=== PATIENT | female | born 1980 | race Caucasian/White ===

== ENCOUNTER 2018-03-26 08:59 | Day surgery (SDC) | payer OTHER ==
[~2018-03-26] VITALS: Ht 165.1 cm; Wt 97.5 kg
[2018-03-26] MEDS ORDERED: LR 1,000 ML IV SCH (13:20)
[2018-03-26] MEDS ORDERED: OXYCODONE/ACETAMINOPHEN 5-325 TABLET PO PRN (13:30)
[2018-03-26] MEDS ORDERED: BUPIVACAINE /EPINEPHRINE/PF 0.5% 30 ML VIAL INJ ONE (13:30)
[2018-03-26] MEDS ORDERED: MIDAZOLAM HCL 5 MG/ML VIAL (VERSED) IV ONE (13:30)
[2018-03-26] MEDS ORDERED: METOCLOPRAMIDE HCL 10 MG/2 ML VIAL IVP PRN (13:30)
[2018-03-26] MEDS ORDERED: HYDROcodone/ACETAMIN 5-325 MG TAB (NORCO/ VICODIN) PO PRN (13:30)
[2018-03-26] MEDS ORDERED: MORPHINE 4 MG/ML INJ. SYRINGE IVP PRN ×3 (13:30)
[2018-03-26] MEDS ORDERED: ROCURONIUM BROMIDE 10 MG/ML (ZEMURON) IV ONE (13:30)
[2018-03-26] MEDS ORDERED: KETOROLAC TROMETHAMINE 30 MG VIAL IVP ONE (13:30)
[2018-03-26] MEDS ORDERED: NS 1000 ML BAG IV ONE (13:30)
[2018-03-26] MEDS ORDERED: SUGAMMADEX SODIUM 200 MG/2 ML VIAL IV ONE (13:30)
[2018-03-26] MEDS ORDERED: PROPOFOL 200MG/ 20ML VIAL (DIPRIVAN) IV ONE (13:30)
[2018-03-26] MEDS ORDERED: LR 1,000 ML IV.SOLN IV ONE (13:30)
[2018-03-26] MEDS ORDERED: ONDANSETRON HCL 4 MG/2 ML VIAL IVP ONE (13:30)
[2018-03-26] MEDS ORDERED: ONDANSETRON HCL 4 MG/2 ML VIAL IVP PRN (13:30)
[2018-03-26] MEDS ORDERED: fentaNYL CITRATE 250 MCG/5 ML AMP IV ONE (13:30)
[2018-03-26] MEDS ORDERED: SEVOFLURANE 15 MIN GAS INH ONE (13:30)
[2018-03-26] MEDS ORDERED: CLINDAMYCIN PHOSPHATE 600 MG/4 ML VIAL IV ONE (13:30)
[2018-03-26] MEDS ORDERED: MORPHINE 4 MG/ML INJ. SYRINGE ONE (14:06)
[2018-03-26] MEDS ORDERED: HYDROcodone/ACETAMIN 5-325 MG TAB (NORCO/ VICODIN) ONE (14:35)
[2018-03-26 14:38] VITALS: BP_SYST 120
== END 2018-03-26 16:00 | disposition home or self-care (01) ==
LOC: SDS 08:59 → SMU 08:59 → SDS 16:00
PROVIDERS: ATTEND Specialist
DX: N83.201 Unspecified ovarian cyst, right side (principal); N70.11 Chronic salpingitis; N80.1 Endometriosis of ovary; K21.9 Gastro-esophageal reflux disease without esophagitis; K58.9 Irritable bowel syndrome, unspecified; G43.909 Migraine, unspecified, not intractable, without status migrainosus; Z98.890 Other specified postprocedural states; Z68.36 Body mass index [BMI] 36.0-36.9, adult; Z88.0 Allergy status to penicillin; Z88.2 Allergy status to sulfonamides; Z88.8 Allergy status to other drugs, medicaments and biological substances; E66.01 Morbid (severe) obesity due to excess calories; G89.29 Other chronic pain
CPT/HCPCS: 58662; C1727; C9399; J1885; J2250; J2270; J2405; J2704; J3010; J3490 ×2; J7030; J7120

== ENCOUNTER 2020-03-16 12:33 | Day surgery (SDC) | payer OTHER ==
[2020-03-16] MEDS ORDERED: LR 1,000 ML IV SCH (14:08)
[2020-03-16] MEDS ORDERED: MEPERIDINE HCL/PF 25 MG/ML DISP.SYRIN IVP PRN (14:15)
[2020-03-16] MEDS ORDERED: ONDANSETRON HCL 4 MG/2 ML VIAL IVP PRN ×2 (14:15→16:15)
[2020-03-16] MEDS ORDERED: fentaNYL CITRATE/PF 100 MCG/2 ML AMP ONE (14:32)
[2020-03-16] MEDS ORDERED: WATER FOR IRRIGATION,STERILE 1,000 ML IRRIG.SOLN IR ONE (16:04)
[2020-03-16] MEDS ORDERED: ROCURONIUM BROMIDE 10 MG/ML (ZEMURON) ONE (16:04)
[2020-03-16] MEDS ORDERED: LR 1,000 ML IV.SOLN IV ONE (16:04)
[2020-03-16] MEDS ORDERED: SUCCINYLCHOLINE CHLORIDE 20 MG/ML(QUELICIN) ONE (16:04)
[2020-03-16] MEDS ORDERED: DEXAMETHASONE SOD PHOSPHATE 4 MG/ML VIAL ONE (16:04)
[2020-03-16] MEDS ORDERED: PROPOFOL 200MG/ 20ML VIAL (DIPRIVAN) IV ONE (16:04)
[2020-03-16] MEDS ORDERED: ISOFLURANE 15 MIN GAS INH ONE (16:04)
[2020-03-16] MEDS ORDERED: NS IRRIG SOLN 1000 ML IR ONE (16:04)
[2020-03-16] MEDS ORDERED: CLINDAMYCIN PHOSPHATE 900 mg/50mL D5W IV ONE (16:04)
[2020-03-16] MEDS ORDERED: BUPIVACAINE /EPINEPHRINE/PF 0.25% 30 ML VIAL INJ ONE (16:04)
[2020-03-16] MEDS: HYDROmorphone 1 MG INJ. 1 MG/ML AMPUL IVP PRN ×2 (16:13→16:26)
[2020-03-16] MEDS ORDERED: HYDROcodone/ACETAMIN 5-325 MG TAB (NORCO/ VICODIN) PO PRN (16:15)
[2020-03-16] MEDS ORDERED: OXYCODONE/ACETAMINOPHEN 5-325 TABLET PO PRN ×2 (16:15)
[2020-03-16] MEDS ORDERED: HYDROmorphone 2 MG/ML VIAL ONE (16:28)
[2020-03-16] MEDS ORDERED: SIMETHICONE 80 MG TAB.CHEW PO SCH (17:00)
[2020-03-16] MEDS ORDERED: ONDANSETRON HCL 4 MG/2 ML VIAL ONE (17:17)
[2020-03-16 17:50] VITALS: BP_SYST 112
== END 2020-03-16 19:00 | disposition home or self-care (01) ==
LOC: SDS 12:33 → SMU 12:34 → SDS 19:00
PROVIDERS: ATTEND Specialist
DX: N83.201 Unspecified ovarian cyst, right side (principal); N83.202 Unspecified ovarian cyst, left side; N94.6 Dysmenorrhea, unspecified; N80.9 Endometriosis, unspecified; Z88.0 Allergy status to penicillin; Z88.1 Allergy status to other antibiotic agents; Z91.048 Other nonmedicinal substance allergy status; K21.9 Gastro-esophageal reflux disease without esophagitis; K58.9 Irritable bowel syndrome, unspecified; Z98.890 Other specified postprocedural states; E66.9 Obesity, unspecified; Z68.33 Body mass index [BMI] 33.0-33.9, adult; Z79.899 Other long term (current) drug therapy; Z11.59 Encounter for screening for other viral diseases
CPT/HCPCS: 58578; 58662; 88304; 88305; C1727; J0330; J1100; J1170; J2405; J2704; J3010; J3490 ×2; J7120; U0002

== ENCOUNTER 2021-03-29 08:36 | Day surgery (SDC) | payer OTHER, SELFPAY ==
[~2021-03-29] VITALS: Ht 165.1 cm; Wt 97.5 kg
[2021-03-29] MEDS ORDERED: NS IRRIG SOLN 1000 ML IR ONE (12:30)
[2021-03-29] MEDS ORDERED: LR 1,000 ML IV.SOLN IV ONE (12:30)
[2021-03-29] MEDS ORDERED: ROPIVACAINE HCL/PF 5 MG/ML 0.5% 30 ML VIAL INJ ONE (12:30)
[2021-03-29] MEDS ORDERED: WATER FOR IRRIGATION,STERILE 4,000 ML IRRIG.SOLN IR ONE (12:30)
[2021-03-29] MEDS ORDERED: SUGAMMADEX SODIUM 200 MG/2 ML VIAL IV ONE (12:30)
[2021-03-29] MEDS ORDERED: CEFAZOLIN SOD 1 GM in D5W 50 ML IV ONE (12:30)
[2021-03-29] MEDS ORDERED: PROPOFOL 200MG/ 20ML VIAL (DIPRIVAN) IV ONE (12:30)
[2021-03-29] MEDS ORDERED: NS 1000 ML IV.SOLN IV ONE (12:30)
[2021-03-29] MEDS ORDERED: SEVOFLURANE 15 MIN GAS INH ONE (12:30)
[2021-03-29] MEDS ORDERED: SUCCINYLCHOLINE CHLORIDE 20 MG/ML(QUELICIN) IVP ONE (12:30)
[2021-03-29] MEDS ORDERED: DEXAMETHASONE SOD PHOSPHATE 4 MG/ML VIAL IVP ONE (12:30)
[2021-03-29] MEDS ORDERED: ROCURONIUM BROMIDE 10 MG/ML (ZEMURON) IV ONE (12:30)
[2021-03-29] MEDS ORDERED: ONDANSETRON HCL 4 MG/2 ML VIAL IVP PRN ×2 (14:00→15:00)
[2021-03-29] MEDS ORDERED: HYDROcodone/ACETAMIN 5-325 MG TAB (NORCO/ VICODIN) PO PRN (14:00)
[2021-03-29] MEDS ORDERED: OXYCODONE/ACETAMINOPHEN 5-325 TABLET PO PRN ×2 (14:00)
[2021-03-29 14:15] VITALS: BP_SYST 110
[2021-03-29] MEDS ORDERED: KETOROLAC TROMETHAMINE 30 MG VIAL IVP PRN (15:00)
[2021-03-29] MEDS ORDERED: HYDROmorphone 1 MG/ML INJ. CARTRIDGE IVP PRN ×2 (15:00)
[2021-03-29] MEDS ORDERED: METOCLOPRAMIDE HCL 10 MG/2 ML VIAL IVP PRN (15:00)
[2021-03-29] MEDS ORDERED: MEPERIDINE HCL/PF 25 MG/ML DISP.SYRIN IVP PRN (15:00)
[2021-03-29] MEDS ORDERED: LR 1,000 ML IV SCH (15:00)
[2021-03-29] MEDS ORDERED: ONDANSETRON HCL 4 MG/2 ML VIAL ONE (15:11)
[2021-03-29] MEDS ORDERED: KETOROLAC TROMETHAMINE 30 MG VIAL ONE (15:16)
[2021-03-29] MEDS: HYDROmorphone 1 MG/ML INJ. CARTRIDGE ONE ×2 (15:20→15:30)
== END 2021-03-29 18:45 | disposition home or self-care (01) ==
LOC: SDS 08:36 → SMU 08:37 → SPU 16:05 → SDS 18:45
PROVIDERS: ATTEND Specialist
DX: N83.202 Unspecified ovarian cyst, left side (principal); N70.11 Chronic salpingitis; R10.2 Pelvic and perineal pain; N80.9 Endometriosis, unspecified; N73.6 Female pelvic peritoneal adhesions (postinfective); K21.9 Gastro-esophageal reflux disease without esophagitis; K58.9 Irritable bowel syndrome, unspecified; E66.9 Obesity, unspecified; Z88.0 Allergy status to penicillin; Z88.1 Allergy status to other antibiotic agents; Z88.2 Allergy status to sulfonamides; Z91.041 Radiographic dye allergy status; Z79.899 Other long term (current) drug therapy
CPT/HCPCS: 36415; 58661; 58662; 87426; 88300; 88305; C1727; C1782; J0690; J1170; J1885; J2405; J7060; J7120; C9399; J0330; J1100; J2704; J7030

== ENCOUNTER 2022-10-26 08:31 | Emergency (ER) | payer OTHER ==
[~2022-10-26] VITALS: Ht 165.1 cm; Wt 97.5 kg
[2022-10-26 09:17] VITALS: BP_SYST 111
[2022-10-26] MEDS ORDERED: KETOROLAC TROMETHAMINE 60 MG/2 ML VIAL IM ONE (09:45)
[2022-10-26 09:59] LABS: BASOPHILS % (AUTO) 0.5 % (0.0-2.0); EOSINOPHILS % (AUTO) 0.4 % (0.0-4.0); HEMATOCRIT 37.1 % (36-48); HEMOGLOBIN 12.5 g/dL (12.0-16.0); LYMPHOCYTES # (AUTO) 1.9 K/uL (1.0-5.5); LYMPHOCYTES % (AUTO) 23.6 % (20.5-51.5); MEAN CORPUSCULAR HEMOGLOBIN 30 pg (27-31); MEAN CORPUSCULAR HGB CONC 34 % (32-36); MEAN CORPUSCULAR VOLUME 88 fL (79.0-98.0); MONOCYTES # (AUTO) 0.7 K/uL (0.0-1.0); MONOCYTES % (AUTO) 8.6 % (1.7-9.3); NEUTROPHILS # (AUTO) 5.5 K/uL (1.8-7.7); NEUTROPHILS % (AUTO) 66.9 % (40.0-70.0); PLATELET COUNT (AUTO) 274 K/uL (130-430); RED BLOOD CELL COUNT(AUTO) 4.21 MIL/uL (4.2-6.2); RED CELL DISTRIBUTION WIDTH 14.4 % (9.0-15.0); WHITE BLOOD COUNT (AUTO) 8.2 K/uL (4.8-10.8)
[2022-10-26 10:25] LABS: CALCIUM 7.9 mg/dL (8.4-11.0); CREATININE 0.87 mg/dL (0.55-1.30)
[2022-10-26 10:28] LABS: ALBUMIN 3.4 g/dL (3.4-4.8); C-REACTIVE PROTEIN QUANT 4.8 mg/dL (0-0.5); TOTAL BILIRUBIN 0.6 mg/dL (0.0-1.0)
[2022-10-26 11:00] VITALS: BP_SYST 111
[2022-10-26 11:54] LABS: BILIRUBIN,URINE NEGATIVE (NEGATIVE); CLARITY/URINE SL CLOUDY (CLEAR); COLOR,URINE YELLOW (YELLOW); GLUCOSE,URINE NEGATIVE (NEGATIVE); KETONES,URINE NEGATIVE (NEGATIVE); LEUKOCYTE ESTERASE ,URINE TRACE (NEGATIVE); NITRITE, URINE NEGATIVE (NEGATIVE); PROTEIN URINE TRACE (NEGATIVE); UROBILINOGEN,URINE 0.2 (0.2-1.0)
[2022-10-26 12:00] LABS: BLOOD, URINE TRACE (NEGATIVE)
[2022-10-26 12:11] LABS: BACTERIA,URINE None Seen /HPF (None Seen); RBC,URINE 0-3 /HPF (0-3); WBC,URINE 20-50 /HPF (0-3)
[2022-10-26 12:12] LABS: MUCUS,URINE None Seen /LPF (None Seen)
[2022-10-26] MEDS ORDERED: IBUP-1969 PO (13:48)
[2022-10-26] MEDS ORDERED: HYDR-3917 PO (13:48)
== END 2022-10-26 14:00 | disposition home or self-care (01) ==
LOC: SED 08:31
DX: M54.50 Low back pain, unspecified (principal); Z88.0 Allergy status to penicillin; Z88.2 Allergy status to sulfonamides; Z88.8 Allergy status to other drugs, medicaments and biological substances
CPT/HCPCS: 99285; 74176; 71045; 80053; 81000; 82150; 84703; 83690; 85025; 86140; 87086; 36415; 76376; 81025; 96372; 83605; J1885

== ENCOUNTER 2023-01-02 05:45 | Day surgery (SDC) | payer OTHER ==
[~2023-01-02] VITALS: Ht 165.1 cm; Wt 99.8 kg
[~2023-01-02 05:45] MED LIST: HYDR-3917 PO; IBUP-1969 PO
[2023-01-02] MEDS ORDERED: SUCCINYLCHOLINE CHLORIDE 20 MG/ML(QUELICIN) ONE (08:14)
[2023-01-02] MEDS ORDERED: ONDANSETRON HCL 4 MG/2 ML VIAL ONE ×2 (08:14→10:18)
[2023-01-02] MEDS ORDERED: DEXAMETHASONE SOD PHOSPHATE 4 MG/ML VIAL ONE (08:14)
[2023-01-02] MEDS ORDERED: fentaNYL CITRATE/PF 100 MCG/2 ML AMP ONE (08:14)
[2023-01-02] MEDS ORDERED: KETOROLAC TROMETHAMINE 30 MG VIAL ONE (08:14)
[2023-01-02] MEDS ORDERED: METOCLOPRAMIDE HCL 10 MG/2 ML VIAL ONE (08:14)
[2023-01-02] MEDS ORDERED: LIDOCAINE/EPI MPF 1%1:200000 30 ML VIAL ONE (08:14)
[2023-01-02] MEDS ORDERED: ROCURONIUM BROMIDE 10 MG/ML (ZEMURON) ONE (08:14)
[2023-01-02] MEDS ORDERED: PROPOFOL 200MG/ 20ML VIAL (DIPRIVAN) IV ONE (08:14)
[2023-01-02] MEDS ORDERED: HYDROmorphone 2 MG/ML VIAL ONE (08:14)
[2023-01-02] MEDS ORDERED: DESFLURANE 15 MIN GAS INH ONE (08:14)
[2023-01-02] MEDS ORDERED: NS 1000 ML IV.SOLN IV ONE (08:14)
[2023-01-02] MEDS ORDERED: SUGAMMADEX SODIUM 200 MG/2 ML VIAL IV ONE (08:14)
[2023-01-02] MEDS ORDERED: NS IRRIG SOLN 1000 ML IR ONE (08:14)
[2023-01-02] MEDS ORDERED: BUPIVACAINE /PF 0.5% 30 ML VIAL ONE (08:14)
[2023-01-02] MEDS ORDERED: LR 1,000 ML IV.SOLN IV ONE (08:14)
[2023-01-02] MEDS ORDERED: HYDROmorphone 1 MG/ML INJ. CARTRIDGE IVP PRN ×2 (08:15)
[2023-01-02] MEDS ORDERED: HYDROmorphone 2 MG/ML VIAL IVP PRN (08:15)
[2023-01-02] MEDS ORDERED: ONDANSETRON HCL 4 MG/2 ML VIAL IVP PRN ×2 (08:15→10:00)
[2023-01-02] MEDS ORDERED: HYDROcodone/ACETAMIN 10-325 MG TAB PO PRN (10:00)
[2023-01-02] MEDS ORDERED: HYDR-3927 PO (10:48)
[2023-01-02] MEDS ORDERED: MIDAZOLAM HCL 2 MG/2 ML VIAL (VERSED) ONE (11:14)
[2023-01-02] MEDS ORDERED: MIDAZOLAM HCL 5 MG/5 ML VIAL IVP ONE (11:15)
[2023-01-02] MEDS ORDERED: KETOROLAC TROMETHAMINE 30 MG VIAL IVP ONE (12:00)
[2023-01-02] MEDS ORDERED: SIMETHICONE 80 MG TAB.CHEW PO SCH (13:00)
[2023-01-02 13:37] VITALS: BP_SYST 102
== END 2023-01-02 13:20 | disposition home or self-care (01) ==
LOC: SMU 05:45 → SDS 05:45
PROVIDERS: ATTEND Specialist
DX: N94.6 Dysmenorrhea, unspecified (principal); N80.9 Endometriosis, unspecified; N73.6 Female pelvic peritoneal adhesions (postinfective); N80.03 Adenomyosis of the uterus; N88.2 Stricture and stenosis of cervix uteri; K21.9 Gastro-esophageal reflux disease without esophagitis; K58.9 Irritable bowel syndrome, unspecified; Z88.0 Allergy status to penicillin; Z88.1 Allergy status to other antibiotic agents; Z20.822 Contact with and (suspected) exposure to COVID-19
CPT/HCPCS: 87081; 58662; 58558; 36415; 87426; J3490 ×2; J1100; J1885; J2765; J3465; J2405; J2704; J0330; J3010; J1170; J7120; J7030; C1727

== ENCOUNTER 2024-01-13 14:04 | Outpatient (CLI) | payer BC ==
[~2024-01-13 14:04] MED LIST changes: +HYDR-3927 PO
== END 2024-01-13 20:27 | disposition home or self-care (01) ==
LOC: SLB 14:04
PROVIDERS: ATTEND Specialist
DX: N92.6 Irregular menstruation, unspecified (principal)
CPT/HCPCS: 88305